=== PATIENT | female | born 1990 | race Caucasian/White ===

== ENCOUNTER 2021-12-03 10:58 | Observation (INO) | payer MEDICAID ==
[~2021-12-03] VITALS: Ht 160 cm; Wt 77.6 kg
[2021-12-03 13:09] LABS: CLARITY URINE CLOUDY (CLEAR); COLOR URINE DARK YELLOW (YELLOW); KETONES URINE NEGATIVE (NEGATIVE); LEUKOCYTE ESTERASE URINE 1+ (NEGATIVE); NITRITE URINE NEGATIVE (NEGATIVE); OCCULT BLOOD URINE TRACE (NEGATIVE); PROTEIN URINE TRACE (NEGATIVE); UROBILINOGEN URINE 0.2 E.U./dL (0.2-1.0)
[2021-12-07] MEDS ORDERED: IBUP-2028 PO (09:28)
[2021-12-07] MEDS ORDERED: MULT1TAB85 MT (09:28)
[2021-12-07] MEDS ORDERED: FERR210T MT (09:28)
== END 2021-12-03 15:23 | disposition home or self-care (01) ==
LOC: INTOOBSV 10:58 → 8 EST LDRP 10:58
PROVIDERS: ADMIT Obstetrics & Gynecology; ATTEND Obstetrics & Gynecology
DX: O26.853 Spotting complicating pregnancy, third trimester (principal); O62.9 Abnormality of forces of labor, unspecified; Z3A.37 37 weeks gestation of pregnancy; Z98.891 History of uterine scar from previous surgery
CPT/HCPCS: 59025; 76805; 76818; 81003; G0378; 99281